=== PATIENT | male | born 1980 | race Hispanic/Latino ===

== ENCOUNTER 2020-01-06 05:36 | Day surgery (SDC) | payer OTHER ==
[2019-12-30 13:45] VITALS: BMI 28.2
[2020-01-06] MEDS ORDERED: HYDROmorphone 0.5 MG/0.5 ML SYRINGE ONE ×2 (06:02→07:37)
[2020-01-06] MEDS ORDERED: Fentanyl 100 MCG/2 ML VIAL ONE ×2 (06:02→08:42)
[2020-01-06] MEDS ORDERED: Midazolam HCl 2 mg/2 ml Vial ONE (06:02)
[2020-01-06] MEDS ORDERED: Lidocaine 2% Jelly 5 ML TUBE ONE (06:02)
[2020-01-06] MEDS ORDERED: Bupivacaine PF 0.5% 30 ML VIAL ONE (06:23)
[2020-01-06] MEDS ORDERED: EPINEPHrine 1 MG/ML AMP ONE (06:23)
[2020-01-06] MEDS ORDERED: Thrombin 5000 UNITS/5 ML VIAL ONE (06:23)
--- NOTE | 2020-01-06 08:46 | OP ---
DATE OF PROCEDURE: 01/06/2020 SHEET TESTER: Terence Kwan PA-C INDICATION: Pain. DIAGNOSIS: Lumbar radiculopathy. PROCEDURE PERFORMED: Right L5 decompression. ANESTHESIA: General. DESCRIPTION OF PROCEDURE: The patient was brought into the operating room and placed under general anesthesia. He was flipped from the supine to prone position on the operating room table. A linear incision was planned at the L5-S1 segment. After prepping and draping and after an appropriate preoperative pause, the incision was created. The soft tissues were swept right of midline. A self-retaining retractor was placed for optimal exposure. A C-arm image was obtained to confirm the appropriate level. After confirming the appropriate level, Kerrisons were used to perform a hemilaminectomy along the inferior aspect of L5 and superior aspect of S1. The laminectomy was extended laterally to encompass the medial aspect of the facet joint. The lateral recess was decompressed. The disk space was palpated and found not to be contributory. After completing the decompression, the wound was irrigated. Hemostasis was maintained throughout. The wound was then closed in anatomic layers and a pressure dressing was applied. There were no known procedural complications. Job ID: [id number]
[2020-01-06] MEDS ORDERED: Tamsulosin HCl 0.4 MG CAP ONE (09:07)
[2020-01-06] MEDS ORDERED: HYDROcodone/Acetaminophen 5/325 mg Tablet ONE (11:14)
[2020-01-06] MEDS ORDERED: Lidocaine 1% PF 5 ML VIAL ONE (11:52)
[2020-01-06] MEDS ORDERED: PROPOFOL 200 MG/20 ML VIAL ONE (11:52)
[2020-01-06] MEDS ORDERED: Dexamethasone 20 MG/5 ML VIAL ONE (11:52)
[2020-01-06] MEDS ORDERED: Ondansetron PF 4 MG/2 ML Vial ONE (11:52)
[2020-01-06] MEDS ORDERED: Rocuronium Bromide 10 MG/ML (10ML VIAL) ONE (11:52)
--- NOTE | 2020-01-07 11:51 | HP ---
HISTORY OF PRESENT ILLNESS: Mr. Freya Mueller is a very pleasant 39-year-old man here today to discuss a year and a half worth of severe right-sided lower back pain matching the S1 radiculopathy into the foot. He states this started after turning and lifting and feeling a pop. Since then, his pain has been relentless. He has attempted treatment with epidural steroid injections, physical therapy, medications with only limited results. His pain worsens with walking and with axial loading and improves with sitting. MRI on disk from [facility] reveals large central disk herniation more severe to the left that impacts both S1 nerve roots and fits his symptoms well. He hopes to discuss surgical management. PHYSICAL EXAMINATION: GENERAL: He is alert and oriented x3. Gait is antalgic and slowed. EXTREMITIES: Lower extremity motor exam is normal. He has a positive right straight leg raise. PAST MEDICAL HISTORY: Significant for no major medical problems. CURRENT MEDICATIONS: 1. Tramadol. 2. Celebrex. 3. Duloxetine. ALLERGIES: NO KNOWN DRUG ALLERGIES. PAST SURGICAL HISTORY: None. ASSESSMENT: Lumbar disk herniation with radiculopathy. PLAN: Dr. Solomon met with the patient, reviewed imaging, advocated for a right L5 diskectomy. He explained to the patient the risks, benefits, and alternatives to the procedure. Patient expressed understanding, elected to move forward with surgery as discussed. I do believe the patient is capable of making medical decisions for himself. We will move forward with surgery as planned. Job ID: [id number]
== END 2020-01-06 13:13 | disposition home or self-care (01) ==
LOC: SDC 05:36
PROVIDERS: ATTEND Neurological Surgery
PROC: 01NB0ZZ Release Lumbar Nerve, Open Approach (ICD-10-PCS; principal; 2020-01-06)
DX: M51.16 Intervertebral disc disorders with radiculopathy, lumbar region (principal)
CPT/HCPCS: 76000; J0171; J0690; J1100; J1170; J2001; J2250; J2405; J2704; J3010; S0020